=== PATIENT | male | born 1955 | race African-American/Black ===

== ENCOUNTER 2017-04-16 09:51 | Emergency (ER) | payer MEDICAID ==
[~2017-04-16] VITALS: Ht 180.3 cm; Wt 75.0 kg
[2017-04-16 11:55] LABS: BASOPHILS % 0.7 % (0.0-2.0); EOSINOPHILS % 0.6 % (0.0-5.0); HEMATOCRIT. 36.6 % (42.0-52.0); HEMOGLOBIN. 12.5 g/dL (14.0-18.0); LYMPHOCYTES % 16.4 % (20.0-50.0); MEAN CORPUSCULAR HEMOGLOBIN 32.3 pg (28.0-32.0); MEAN CORPUSCULAR VOLUME 94.5 fL (80.0-94.0); MEAN PLATELET VOLUME 7.7 fl (7.4-10.4); MONOCYTES % 7.9 % (2.0-8.0); NEUTROPHILS % 74.4 % (40.0-76.0); PLATELET 276 x1000/uL (130-400); RED BLOOD CELL COUNT 3.87 mill/uL (4.7-6.1); RED CELL DISTRIBUTION WIDTH 13.3 % (11.6-14.6)
[2017-04-16 12:04] LABS: CARBON DIOXIDE 28 mEq/L (21-32); CHLORIDE 99 mEq/L (98-107)
[2017-04-16 13:30] VITALS: BP 140/75
[2017-04-16 13:56] LABS: CLARITY URINE CLEAR (CLEAR); COLOR URINE YELLOW (YELLOW); GLUCOSE URINE NEGATIVE (NEGATIVE); KETONES URINE NEGATIVE (NEGATIVE); LEUKOCYTE ESTERASE URINE 2+ (NEGATIVE); NITRITE URINE NEGATIVE (NEGATIVE); OCCULT BLOOD URINE TRACE (NEGATIVE); PH URINE 6.5 (4.5-8.0); PROTEIN URINE NEGATIVE (NEGATIVE); SPECIFIC GRAVITY URINE 1.013 (1.005-1.030)
== END 2017-04-16 15:32 | disposition home or self-care (01) ==
LOC: ER 09:51
DX: N39.0 Urinary tract infection, site not specified (principal); F20.9 Schizophrenia, unspecified; K21.9 Gastro-esophageal reflux disease without esophagitis; F17.200 Nicotine dependence, unspecified, uncomplicated; R56.9 Unspecified convulsions; I10 Essential (primary) hypertension; Z86.73 Personal history of transient ischemic attack (TIA), and cerebral infarction without residual deficits
CPT/HCPCS: 36415; 51702; 80048; 81001; 85025; 99284; A4217; Z7610; A4315

== ENCOUNTER 2017-04-21 10:10 | Emergency (ER) | payer MEDICAID ==
[~2017-04-21] VITALS: Ht 172.7 cm; Wt 81.0 kg
[2017-04-21 13:53] VITALS: BP 132/71
== END 2017-04-21 15:00 | disposition home or self-care (01) ==
LOC: ER 14:17
DX: T83.038A Leakage of other urinary catheter, initial encounter (principal); I10 Essential (primary) hypertension; G40.909 Epilepsy, unspecified, not intractable, without status epilepticus; F17.210 Nicotine dependence, cigarettes, uncomplicated; Z86.73 Personal history of transient ischemic attack (TIA), and cerebral infarction without residual deficits; Y84.6 Urinary catheterization as the cause of abnormal reaction of the patient, or of later complication, without mention of misadventure at the time of the procedure; Y92.018 Other place in single-family (private) house as the place of occurrence of the external cause
CPT/HCPCS: 51702; 99284

== ENCOUNTER 2021-05-11 09:35 | Emergency (ER) | payer OTHER ==
[~2021-05-11] VITALS: Ht 177.8 cm; Wt 82.0 kg
[2021-05-11 10:58] LABS: BASOPHILS % 0.5 % (0.0-2.0); EOSINOPHILS % 5.6 % (0.0-5.0); HEMATOCRIT. 36.3 % (42.0-52.0); HEMOGLOBIN. 12.4 g/dL (14.0-18.0); LYMPHOCYTES % 32.8 % (20.0-50.0); MEAN CORPUSCULAR HEMOGLOBIN 32.3 pg (28.0-32.0); MEAN CORPUSCULAR VOLUME 94.9 fL (80.0-94.0); MEAN PLATELET VOLUME 8.7 fl (7.4-10.4); MONOCYTES % 7.7 % (2.0-8.0); NEUTROPHILS % 53.4 % (40.0-76.0); PLATELET 241 x1000/uL (130-400); RED BLOOD CELL COUNT 3.82 mill/uL (4.7-6.1); RED CELL DISTRIBUTION WIDTH 13.1 % (11.6-14.6)
[2021-05-11 11:03] LABS: CHLORIDE 107 mEq/L (98-107)
[2021-05-11 13:51] LABS: CLARITY URINE CLEAR (CLEAR); COLOR URINE YELLOW (YELLOW); KETONES URINE NEGATIVE (NEGATIVE); LEUKOCYTE ESTERASE URINE NEGATIVE (NEGATIVE); NITRITE URINE NEGATIVE (NEGATIVE); OCCULT BLOOD URINE NEGATIVE (NEGATIVE); PH URINE 7.5 (4.5-8.0); PROTEIN URINE NEGATIVE (NEGATIVE); SPECIFIC GRAVITY URINE 1.006 (1.005-1.030); UROBILINOGEN URINE 0.2 E.U./dL (0.2-1.0)
[2021-05-11 17:59] VITALS: BP 145/86
== END 2021-05-11 18:39 | disposition short-term general hospital (02) ==
LOC: ER 09:44
DX: R55 Syncope and collapse (principal); I95.9 Hypotension, unspecified; I10 Essential (primary) hypertension; Z20.822 Contact with and (suspected) exposure to COVID-19; Z98.890 Other specified postprocedural states; Z86.73 Personal history of transient ischemic attack (TIA), and cerebral infarction without residual deficits; Z86.59 Personal history of other mental and behavioral disorders
CPT/HCPCS: 36415; 71045; 80053; 81003; 83880; 84484; 85025; 87426; 93005; 99285

== ENCOUNTER 2021-06-20 09:02 | Emergency (ER) | payer OTHER ==
[~2021-06-20] VITALS: Ht 170.2 cm; Wt 70.0 kg
[2021-06-20] MEDS ORDERED: SODIUM CHLORIDE 0.9% 1,000 ML IV ONE (10:00)
[2021-06-20 11:58] LABS: CHLORIDE 107 mEq/L (98-107)
[2021-06-20 12:03] LABS: BASOPHILS % 0.5 % (0.0-2.0); EOSINOPHILS % 0.8 % (0.0-5.0); LYMPHOCYTES % 19.7 % (20.0-50.0); MEAN CORPUSCULAR VOLUME 98.5 fL (80.0-94.0); MEAN PLATELET VOLUME 7.8 fl (7.4-10.4); MONOCYTES % 12.2 % (2.0-8.0); NEUTROPHILS % 66.8 % (40.0-76.0); PLATELET 238 x1000/uL (130-400); RED BLOOD CELL COUNT 3.04 mill/uL (4.7-6.1); RED CELL DISTRIBUTION WIDTH 14.7 % (11.6-14.6)
[2021-06-20 12:08] LABS: ETHANOL BLOOD < 10 mg/dL
[2021-06-20] MEDS ORDERED: VANCOMYCIN 1 G PREMIX 200 ML IV ONE (12:15)
[2021-06-20] MEDS ORDERED: PIPERACILLIN/TAZ 3.375G PREMIX 50 ML IV ONE (12:15)
[2021-06-20 15:22] LABS: CLARITY URINE CLOUDY (CLEAR); COLOR URINE YELLOW (YELLOW); KETONES URINE NEGATIVE (NEGATIVE); LEUKOCYTE ESTERASE URINE 2+ (NEGATIVE); NITRITE URINE NEGATIVE (NEGATIVE); OCCULT BLOOD URINE 2+ (NEGATIVE); PH URINE 7.5 (4.5-8.0); PROTEIN URINE NEGATIVE (NEGATIVE); SPECIFIC GRAVITY URINE 1.025 (1.005-1.030)
[2021-06-20 16:10] LABS: *AMPHETAMINES SCREEN URINE NEGATIVE (NEGATIVE); *BARBITURATES SCREEN URINE NEGATIVE (NEGATIVE); *BENZODIAZEPINES SCREEN URINE NEGATIVE (NEGATIVE); *COCAINE SCREEN URINE NEGATIVE (NEGATIVE); METHADONE URINE SCREEN NEGATIVE (NEGATIVE); OPIATES URINE SCREEN NEGATIVE (NEGATIVE)
[2021-06-20 16:11] LABS: CANNABINOID URINE SCREEN NEGATIVE (NEGATIVE); PHENCYCLIDINE URINE SCREEN NEGATIVE (NEGATIVE)
[2021-06-20 17:39] VITALS: BP 122/71
== END 2021-06-20 18:30 | disposition short-term general hospital (02) ==
LOC: ER 09:02
DX: R55 Syncope and collapse (principal); I95.89 Other hypotension; I10 Essential (primary) hypertension; G40.909 Epilepsy, unspecified, not intractable, without status epilepticus; N40.0 Benign prostatic hyperplasia without lower urinary tract symptoms; Z86.73 Personal history of transient ischemic attack (TIA), and cerebral infarction without residual deficits
CPT/HCPCS: 36415; 71045; 80053; 80185; 80305; 80320; 81003; 82962; 83605; 84484; 85025; 87040; 87086; 93005; 96361; 96365; 96366; 96368; 99285; J2543; J3370; J7030; G0480

== ENCOUNTER 2021-11-14 09:07 | Emergency (ER) | payer OTHER ==
[~2021-11-14] VITALS: Ht 177.8 cm; Wt 85.0 kg
[2021-11-14] MEDS ORDERED: SODIUM CHLORIDE 0.9% 1,000 ML IV ONE (09:45)
[2021-11-14 10:02] LABS: BASOPHILS % 0.7 % (0.0-2.0); EOSINOPHILS % 3.1 % (0.0-5.0); HEMATOCRIT. 34.5 % (42.0-52.0); HEMOGLOBIN. 11.7 g/dL (14.0-18.0); LYMPHOCYTES % 28.1 % (20.0-50.0); MEAN CORPUSCULAR HEMOGLOBIN 31.2 pg (28.0-32.0); MEAN CORPUSCULAR VOLUME 92.1 fL (80.0-94.0); MEAN PLATELET VOLUME 8.3 fl (7.4-10.4); MONOCYTES % 7.3 % (2.0-8.0); NEUTROPHILS % 60.8 % (40.0-76.0); PLATELET 235 x1000/uL (130-400); RED BLOOD CELL COUNT 3.74 mill/uL (4.7-6.1); RED CELL DISTRIBUTION WIDTH 14.6 % (11.6-14.6)
[2021-11-14 10:09] LABS: CHLORIDE 108 mEq/L (98-107); INR 1.1; PROTHROMBIN TIME 11.6 sec (9.6-11.0)
[2021-11-14 10:42] LABS: CLARITY URINE CLOUDY (CLEAR); COLOR URINE YELLOW (YELLOW); KETONES URINE NEGATIVE (NEGATIVE); LEUKOCYTE ESTERASE URINE 2+ (NEGATIVE); NITRITE URINE NEGATIVE (NEGATIVE); OCCULT BLOOD URINE NEGATIVE (NEGATIVE); PH URINE >=9.0 (4.5-8.0); PROTEIN URINE 1+ (NEGATIVE); SPECIFIC GRAVITY URINE 1.012 (1.005-1.030); UROBILINOGEN URINE 0.2 E.U./dL (0.2-1.0)
[2021-11-14] MEDS ORDERED: CEFTRIAXONE 1 G PREMIX 50 ML IV ONE (11:15)
[2021-11-14] MEDS ORDERED: SODIUM CHLORIDE 0.9% 1000ML BAG (SEPSIS BOLUS) IV ONE (11:15)
[2021-11-14 22:51] VITALS: BP 161/87
== END 2021-11-14 23:24 | disposition short-term general hospital (02) ==
LOC: ER 09:17 → EDBEDREQ 11:32 → ER 23:24 → CANBEDREQ 23:52
DX: A41.9 Sepsis, unspecified organism (principal); R55 Syncope and collapse; I10 Essential (primary) hypertension; G40.909 Epilepsy, unspecified, not intractable, without status epilepticus; N40.0 Benign prostatic hyperplasia without lower urinary tract symptoms; Z85.46 Personal history of malignant neoplasm of prostate; Z87.440 Personal history of urinary (tract) infections; Z86.73 Personal history of transient ischemic attack (TIA), and cerebral infarction without residual deficits; Z87.891 Personal history of nicotine dependence
CPT/HCPCS: 36415; 71045; 80053; 81003; 83605; 83880; 84145; 84484; 85025; 85610; 87040; 87086; 87426; 93005; 96365; 99291; J0696; J7030

== ENCOUNTER 2022-08-02 08:58 | Emergency (ER) | payer OTHER ==
[~2022-08-02] VITALS: Ht 182.9 cm; Wt 82.0 kg
[2022-08-02 10:44] LABS: BASOPHILS % 0.3 % (0.0-2.0); EOSINOPHILS % 1.1 % (0.0-5.0); HEMATOCRIT. 37.8 % (42.0-52.0); HEMOGLOBIN. 12.7 g/dL (14.0-18.0); LYMPHOCYTES % 31.6 % (20.0-50.0); MEAN CORPUSCULAR HEMOGLOBIN 33.1 pg (28.0-32.0); MEAN CORPUSCULAR VOLUME 98.5 fL (80.0-94.0); MEAN PLATELET VOLUME 7.6 fl (7.4-10.4); MONOCYTES % 5.7 % (2.0-8.0); NEUTROPHILS % 61.3 % (40.0-76.0); PLATELET 340 x1000/uL (130-400); RED BLOOD CELL COUNT 3.84 mill/uL (4.7-6.1); RED CELL DISTRIBUTION WIDTH 13.2 % (11.6-14.6)
[2022-08-02 10:49] LABS: CHLORIDE 103 mEq/L (98-107)
[2022-08-02 10:51] LABS: PROTHROMBIN TIME 10.5 sec (9.6-11.0)
[2022-08-02 11:48] LABS: CLARITY URINE TURBID (CLEAR); COLOR URINE YELLOW (YELLOW); KETONES URINE TRACE (NEGATIVE); LEUKOCYTE ESTERASE URINE 3+ (NEGATIVE); NITRITE URINE POSITIVE (NEGATIVE); OCCULT BLOOD URINE TRACE (NEGATIVE); PROTEIN URINE 1+ (NEGATIVE)
[2022-08-02] MEDS ORDERED: CEFTRIAXONE 1 G PREMIX 50 ML IV NR (13:15)
[2022-08-02] MEDS ORDERED: CEPH500T MT (13:37)
[2022-08-02 20:59] VITALS: BP 124/66
== END 2022-08-02 21:14 | disposition short-term general hospital (02) ==
LOC: ER 08:58 → CANBEDREQ 23:27
DX: R55 Syncope and collapse (principal); N39.0 Urinary tract infection, site not specified; I10 Essential (primary) hypertension; Z86.73 Personal history of transient ischemic attack (TIA), and cerebral infarction without residual deficits; Z20.822 Contact with and (suspected) exposure to COVID-19
CPT/HCPCS: 36415; 70450; 71045; 80053; 81003; 82962; 84484; 85025; 85610; 87077; 87086; 87186; 87426; 96365; 99285; C9803; J0696; Z7610